=== PATIENT | female | born 1990 | race Caucasian/White ===

== ENCOUNTER 2024-07-07 16:40 | Inpatient (IN) | payer OTHER ==
[2024-07-07 18:38] VITALS: BMI 21.9
[2024-07-07] MEDS ORDERED: BENZONATATE 200 MG CAPSULE PO PRN (19:00)
[2024-07-07] MEDS ORDERED: POLYETHYLENE GLYCOL (HEALTHYLAX) 3350 17 GM PACKET PO PRN (19:00)
[2024-07-07] MEDS ORDERED: BENZOCAINE/MENTHOL (CHLORASEPTIC ) LOZENGE MM PRN (19:00)
[2024-07-07] MEDS ORDERED: MAGNESIUM HYDROX 2400MG/30ML ORAL SUSPENSION 30 ML CUP PO PRN (19:00)
[2024-07-07] MEDS ORDERED: IBUPROFEN 400 MG TABLET (FP) PO PRN (19:00)
[2024-07-08] MEDS: MELATONIN 5 MG TABLETS PO SCH (01:34)
[2024-07-08] MEDS: THIAMINE 100 MG TABLET PO SCH (01:34)
[2024-07-08] MEDS: DOXYCYCLINE HYCLATE 100 MG TABLET PO SCH (10:27)
[2024-07-08] MEDS: METHOCARBAMOL 500 MG TABLET PO PRN (10:27)
[2024-07-08] MEDS: PRENATAL VITAMINS W/ FOLIC ACID TABLET (FP) PO SCH (10:27)
[2024-07-08] MEDS: PANTOPRAZOLE 40 MG TABLET PO SCH (10:27)
[2024-07-08] MEDS: BISMUTH SUBSALICYLATE 262 MG/15 ML BTL PO SCH (10:27)
[2024-07-08] MEDS ORDERED: BISMUTH PO SCH (14:00)
[2024-07-08] MEDS ORDERED: [UNRECOGNIZED DRUG - OTHER] PO SCH (14:00)
[2024-07-08] MEDS ORDERED: TETRACYCLINE PO SCH (14:00)
[2024-07-08] MEDS: NALTREXONE HCL 50 MG TABLET PO SCH (14:23)
[2024-07-08] MEDS: hydrOXYzine PAMOATE 25 MG CAPSULE (FP) PO PRN (14:23)
[2024-07-08] MEDS: metroNIDAZOLE 250 MG TABLET PO SCH (14:35)
[2024-07-08] MEDS: NICOTINE POLACRILEX 2 MG GUM BUC PRN (17:38)
[2024-07-08] MEDS: NICOTINE 21 MG/24 HOURS TOPICAL PATCH TD SCH (17:49)
[2024-07-08] MEDS: PANTOPRAZOLE 20 MG TABLET PO SCH (21:26)
[2024-07-09] MEDS: FOLIC ACID 1 MG TABLET (FP) PO SCH (09:37)
[2024-07-09] MEDS: HYDROCORTISONE 1% TOPICAL CREAM 30 GM TUBE TP PRN (20:44)
[2024-07-10] MEDS: hydrOXYzine PAMOATE 50 MG CAPSULE (FP) PO PRN (11:00)
[2024-07-10] MEDS: ALBUTEROL SO4 HFA INHALER IH PRN (17:04)
[2024-07-10] MEDS: SUVOREXANT 10 MG TABLET PO PRN (21:11)
[2024-07-11] MEDS: BISMUTH SUBSALICYLATE 262 MG/15 ML BTL PO SCH (14:50)
[2024-07-11] MEDS: metroNIDAZOLE 250 MG TABLET PO ONE (16:01)
[2024-07-11] MEDS: MAG HYDROX/AL HYDROX/SIMETH 30 ML UNIT-DOSE CUP PO PRN (17:45)
[2024-07-11] MEDS: PANTOPRAZOLE 40 MG TABLET PO SCH (21:53)
[2024-07-12] MEDS: NICOTINE 14 MG/24 HOURS TOPICAL PATCH TD SCH (10:38)
[2024-07-12] MEDS: propRANOLol HCL 10 MG TABLET PO PRN (14:23)
[2024-07-13] MEDS ORDERED: TUBERCULIN PPD 5 TU/0.1ML VIAL ID ONE (09:49)
[2024-07-14] MEDS ORDERED: BISMUTH SUBSALICYLATE 262 MG/15 ML BTL PO PRN (10:56)
[2024-07-14] MEDS: FLU VACCINE (FLULAVAL) PF 45 MCG/0.5 ML SYRINGE 2024-2025 IM ONE (15:04)
[2024-07-14] MEDS: ACETAMINOPHEN 325 MG TABLET (FP) PO PRN (17:44)
[2024-07-14] MEDS: SUVOREXANT 15 MG TABLET PO PRN (22:18)
[2024-07-15] MEDS: NICOTINE 7 MG/24 HOURS TOPICAL PATCH TD SCH (09:57)
[2024-07-15 11:58] LABS: HEMATOCRIT 36.2 % (32.4-45.2); HEMOGLOBIN 12.3 GM/dL (10.7-15.3); MCHC 34.1 g/dl (32.0-36.0); MEAN CELL VOLUME 111.3 fl (80-96); MEAN PLT VOLUME 8.3 fl (7.5-11.1); PLATELET COUNT 387 10^3/uL (134-434); RBC 3.25 M/mm3 (3.60-5.2); RDW 14.2 % (11.6-15.6); WHITE BLOOD COUNT 8.9 K/mm3 (4.0-10.0)
[2024-07-15 12:02] LABS: POTASSIUM 3.6 mmol/L (3.5-5.1)
[2024-07-15 12:05] LABS: INR 1.07 (0.83-1.09); PROTHROMBIN TIME (PATIENT) 12.3 SEC (9.7-13.0)
[2024-07-15 12:07] LABS: CALCIUM 8.9 mg/dL (8.5-10.1); MAGNESIUM 1.6 mg/dL (1.8-2.4)
[2024-07-15 12:08] LABS: BLOOD UREA NITROGEN 3.6 mg/dL (7-18)
[2024-07-15 12:09] LABS: BILIRUBIN,TOTAL 0.3 mg/dL (0.2-1)
[2024-07-15 12:10] LABS: CREATININE 0.7 mg/dL (0.55-1.3)
[2024-07-15 12:11] LABS: ALBUMIN 3.4 g/dl (3.4-5.0)
[2024-07-15 12:15] LABS: TOT PROT 6.2 g/dl (6.4-8.2)
[2024-07-17] MEDS: IBUPROFEN 600 MG TABLET (FP) PO PRN (13:18)
[2024-07-17] MEDS ORDERED: SUVOREXANT 15 MG TABLET PO PRN (22:00)
[2024-07-18] MEDS: MAGNESIUM OXIDE 400 MG TABLET (FP) PO SCH (12:32)
[2024-07-18] MEDS: CHOLECALCIFEROL (VIT D3) 400 UNIT (10 MCG) TABLET PO SCH (12:32)
[2024-07-18] MEDS: QUEtiapine FUMARATE 50 MG TABLET PO SCH (21:24)
[2024-07-21] MEDS: GABAPENTIN 100 MG CAPSULE PO SCH (13:51)
[2024-07-21] MEDS: METHOCARBAMOL 500 MG TABLET PO PRN (20:10)
[2024-07-25] MEDS: QUEtiapine FUMARATE 100 MG TABLET (FP) PO SCH (21:25)
[2024-07-28] MEDS: METHOCARBAMOL 500 MG TABLET PO PRN (13:36)
[2024-07-29] MEDS: LOPERAMIDE HCL 2 MG CAPSULE PO PRN (16:41)
[2024-08-03] MEDS: NALTREXONE MICROSPHERES (VIVITROL) 380 MG DISP.SYRIN IM ONE (11:26)
[2024-08-03] MEDS: NALOXONE (NYS OPIOID OVERDOSE PROGRAM) 4 MG/0.1 ML SPRAY NS SCH (11:32)
[2024-08-04 07:18] VITALS: BP 108/74; PULSE 97; RESP 16; TEMP 97.5
== END 2024-08-04 10:20 | disposition home or self-care (01) | DRG 772 ==
LOC: YASAS 16:40 → Y3NR 23:00 → Y5N 07-12 12:00
PROVIDERS: ADMIT Psychiatry & Neurology Pain Medicine; ATTEND Psychiatry & Neurology Pain Medicine
PROC: HZ42ZZZ Group Counseling for Substance Abuse Treatment, Cognitive-Behavioral (ICD-10-PCS; principal; 2024-07-07)
DX: F10.20 Alcohol dependence, uncomplicated (principal); F12.20 Cannabis dependence, uncomplicated; F17.210 Nicotine dependence, cigarettes, uncomplicated; F10.280 Alcohol dependence with alcohol-induced anxiety disorder; F10.282 Alcohol dependence with alcohol-induced sleep disorder; K21.9 Gastro-esophageal reflux disease without esophagitis; M54.16 Radiculopathy, lumbar region; Z87.19 Personal history of other diseases of the digestive system; Z86.19 Personal history of other infectious and parasitic diseases
CPT/HCPCS: 36415; 80053; 80305; 80307; 81025; 82140; 82652; 83735; 85027; 85610; 86780; 87811; 90656; G0008; J2315